=== PATIENT | male | born 1960 | race Caucasian/White ===

== ENCOUNTER 2017-07-05 14:53 | Emergency (ER) | payer OTHER ==
[2017-07-05 14:59] VITALS: TEMP 98.8
[2017-07-05] MEDS ORDERED: LET GEL TOPICAL 1 EA SYR TP ONE (15:12)
--- NOTE | 2017-07-05 15:14 | EDPHY ---
H & P Stated Complaint: tripped over concrete parking bloc/lac to face/denies loc or neck pain Source: Patient Exam Limitations: No limitations - Personal History Current Tetanus/Diphtheria Vaccine: Unsure Tetanus Vaccine Date: < 5 yrs - Medical/Surgical History Hx Asthma: No Hx Chronic Respiratory Disease: No Hx Diabetes: No Hx Cardiac Disease: No Hx Renal Disease: No Hx Cirrhosis: No Hx Alcoholism: No Hx HIV/AIDS: No Hx Splenectomy or Spleen Trauma: No Other PMH: PMH: diverticulitis, obesity. PSH: gallbladder r hip replacement - Social History Smoking Status: Never smoked Time Seen by Provider: 07/05/17 15:14 HPI/ROS: CHIEF COMPLAINT: Mechanical fall, facial laceration and abrasions HISTORY OF PRESENT ILLNESS: The patient presents to the ED after he sustained a mechanical fall while walking in a parking lot. He fell forward striking his head. The patient sustained a laceration adjacent to his right eye with superficial abrasions to his cheek. The patient did not lose lose consciousness. The patient reports he is uncertain when his last tetanus shot was. The patient denies any neck pain, chest pain, back pain, abdominal pain or difficulty breathing. REVIEW OF SYSTEMS: A COMPREHENSIVE 10 POINT REVIEW OF SYSTEMS IS OTHERWISE NEGATIVE ASIDE FROM ELEMENTS MENTIONED IN THE HISTORY OF PRESENT ILLNESS. (Neymar Box) - Physical Exam Exam: General Appearance: Alert, no distress Head: Multiple deep abrasions noted to the right cheek, 3 cm laceration lateral to the right eyebrow Eyes: Pupils equal, round, reactive small subconjunctival hemorrhage ENT, Mouth: No hemotympanum, no oral trauma Neck: Nontender, trachea midline Respiratory: No chest wall tender, subcutaneous air, lungs clear bilaterally Cardiovascular: Regular rate and rhythm Abdomen: Abdomen is soft and nontender, pelvis stable Skin: Multiple abrasions, no focal tenderness Back: No midline T/L/S pain Extremities: Nontender, full range of motion Neurological: A&Ox3, normal motor function, normal sensory exam (Neymar Box) Constitutional: Initial Vital Signs Temperature (C) 37.1 C 07/05/17 14:56 Heart Rate 79 07/05/17 14:56 Respiratory Rate 16 07/05/17 14:56 Blood Pressure 133/71 H 07/05/17 14:56 O2 Sat (%) 94 07/05/17 14:56 O2 Delivery Mode Room Air Allergies/Adverse Reactions: metronidazole [From Flagyl] Allergy (Verified 07/05/17 14:56) Penicillins Allergy (Verified 07/05/17 14:56) Home Medications: Medication Instructions Recorded NK [No Known Home Meds] 07/05/17 Medical Decision Making Procedures: Procedure: Laceration repair. I was requested by Dr. Box to perform wound closure I explained the indications, risks and benefits for both laceration repair and anesthetic administration. Verbal consent was obtained from the patient . The 3 cm laceration on the right lateral eyebrow was anesthetized using 0.5% bupivicaine with epinephrine . After anesthetic administered the patient was observed for a period of time and had no apparent adverse effects. The wound was cleaned, prepped, draped in normal sterile fashion and explored to its base. No foreign body seen, no foreign bodies palpated. There were no deep structures involved. The wound was repaired with running suture of 6 0 Prolene. The wound repair was simple. The procedure was performed by myself. Patient has been informed that scarring will occur, although efforts have been made to minimize this. (Paradise Pappas) ED Course/Re-evaluation: The patient presents the ED for evaluation of facial injuries following mechanical fall. The patient's GCS is 15. He has no scalp hematoma. He has no complaints of significant headache. Patient is not anticoagulated. The patient is noted to have a normal neurologic examination. He has no midline cervical spine tenderness and has been cleared via nexus criteria. The patient's laceration was repaired by the physician construction project assistant under my supervision. The patient will be discharged home with customary sutured laceration aftercare instructions. He will apply antibiotic ointment as directed to his abrasions. Suture removal will be in 5 days. (Neymar Box) Differential Diagnosis: Differential diagnosis considered includes laceration, abrasion, facial bone fracture, intracranial hemorrhage, concussion (Neymar Box) - Data Points Medications Given: Discontinued Medications Tetracaine/Epinephrine/Lidocaine (Let Gel Topical) 1 ea TP EDNOW ONE Stop: 07/05/17 15:13 Last Admin: 07/05/17 15:21 Dose: 1 ea Departure - Departure Disposition: Home, Routine, Self-Care Clinical Impression: Facial laceration Condition: Good Instructions: Laceration (ED) Additional Instructions: 1. Suture removal in 5 days. 2. Apply antibiotic ointment to abrasions twice daily for next week. 3. Return to the ED for severe headache, neck pain, numbness, weakness or new traumatic injuries.
[2017-07-05] MEDS ORDERED: TDAP ADULT 0.5 ML INJ (BOOSTRIX) IM ONE (16:02)
[2017-07-05 16:16] VITALS: BP 144/84; PULSE 91; RESP 18; O2SAT 93
== END 2017-07-05 16:15 | disposition home or self-care (01) ==
PROC: 0HQ1XZZ Repair Face Skin, External Approach (ICD-10-PCS; principal; 2017-07-05)
DX: S01.81XA Laceration without foreign body of other part of head, initial encounter (principal); Z23 Encounter for immunization; W01.198A Fall on same level from slipping, tripping and stumbling with subsequent striking against other object, initial encounter; Y99.8 Other external cause status; Y93.01 Activity, walking, marching and hiking